=== PATIENT | male | born 1955 | race Caucasian/White ===

== ENCOUNTER → 2017-04-27 | Outpatient (CLI) | payer BC ==
[2017-04-27 09:28] LABS: HEMATOCRIT 45.9 % (42-52); MEAN CELL VOLUME 91.3 fL (80-100); MEAN CORPUSCULAR HEMOGLOBIN 31.6 pg (25-34); MEAN CORPUSCULAR HGB CONC 34.6 g/dl (32-36); MEAN PLATELET VOLUME 10.9 fL (7.4-10.4); PLATELET COUNT 199 K/uL (130-400); RED BLOOD COUNT 5.03 M/uL (4.7-6.1); WHITE BLOOD COUNT 6.96 K/uL (4.8-10.8)
[2017-04-27 09:42] LABS: ALT/SGPT 29 U/L (12-78); AST/SGOT 19 U/L (15-37); BLOOD UREA NITROGEN 14 mg/dl (7-18); BUN/CREATININE RATIO 13.7 (10-20); CALCIUM 8.7 mg/dl (8.5-10.1); CARBON DIOXIDE 29 mmol/L (21-32); CHLORIDE 105 mmol/L (98-107); CHOLESTEROL 167 mg/dl (0-200); GLUCOSE 100 mg/dl (70-99); POTASSIUM 4.5 mmol/L (3.5-5.1); SODIUM 139 mmol/L (136-145); TRIGLYCERIDES 80 mg/dl (0-150); VERY LOW DENSITY LIPOPROT CALC 16 mg/dl
[2017-04-27 09:46] LABS: CHOLESTEROL/HDL RATIO 3.6; HDL CHOLESTEROL 47 mg/dl; LDL CHOLESTEROL CALCULATED 104 mg/dl
== END | disposition home or self-care (01) ==
LOC: C.LAB1850 07:29
PROVIDERS: ATTEND Internal Medicine
DX: E55.9 Vitamin D deficiency, unspecified (principal); Z12.5 Encounter for screening for malignant neoplasm of prostate; Z13.220 Encounter for screening for lipoid disorders; M15.9 Polyosteoarthritis, unspecified; G44.89 Other headache syndrome

== ENCOUNTER → 2017-04-30 | Outpatient (CLI) | payer BC ==
--- NOTE | 2017-04-30 09:52 | DIAGNOSTIC IMAGING REPORT ---
RIGHT HIP UNILATERAL 2 VIEWS CLINICAL HISTORY: 61 years-old Male presenting with right hip pain. TECHNIQUE: Frontal and frog-leg lateral views of the right hip were obtained. COMPARISON: 12/21/2015. FINDINGS: Right hip joint congruent. No acute fracture. Degenerative changes noted with mild joint space loss and osteophytosis as well as subchondral sclerosis. This is not significantly changed from the prior exam. Surgical clips noted in the right hemipelvis. Regional soft tissues within normal limits. IMPRESSION: Degenerative changes of the right hip not significant changed from prior exam. No acute osseous injury. Electronically signed by: Manohar Carr M.D. 04/30/2017 9:51 AM Dictated Date/Time: 04/30/2017 9:48 AM
== END | disposition home or self-care (01) ==
LOC: C.RAD1850 09:39
PROVIDERS: ATTEND Internal Medicine
DX: M25.551 Pain in right hip (principal)

== ENCOUNTER → 2017-07-19 | Outpatient (CLI) | payer BC ==
--- NOTE | 2017-07-19 14:01 | DIAGNOSTIC IMAGING REPORT ---
R VENOUS DOPP LOWER EXT UNILAT CLINICAL HISTORY: R60.0 Edema of right lower [id number] pain. Edema. TECHNIQUE: Venous Doppler COMPARISON STUDY: None FINDINGS: Normal study. No evidence for deep venous thrombosis. Venous flow characteristics are unremarkable. IMPRESSION: Normal study The above report was generated using voice recognition software. It may contain grammatical, syntax or spelling errors. Electronically signed by: Izaiah Smith M.D. 07/19/2017 2:00 PM Dictated Date/Time: 07/19/2017 1:59 PM
--- NOTE | 2017-07-19 14:32 | DIAGNOSTIC IMAGING REPORT ---
R KNEE 3 VIEWS CLINICAL HISTORY: M25.569 Pain and swelling of [id number] pain. Edema. COMPARISON: None. DISCUSSION: Mild degenerative change all major joint compartments. Lateral bony exostosis of the medial femoral condyle. Nonacute process. No significant joint effusion. There is no evidence for soft tissue swelling. IMPRESSION: No acute process. Mild degenerative change. The above report was generated using voice recognition software. It may contain grammatical, syntax or spelling errors. Electronically signed by: Izaiah Smith M.D. 07/19/2017 2:30 PM Dictated Date/Time: 07/19/2017 2:30 PM
== END | disposition home or self-care (01) ==
LOC: C.ULTR 13:35
PROVIDERS: ATTEND Internal Medicine
DX: M25.569 Pain in unspecified knee (principal); R60.0 Localized edema

== ENCOUNTER 2022-03-07 05:11 | Observation (INO) ==
--- NOTE | 2022-02-06 15:58 | PAT Medication Instructions ---
Medication Instructions Date of Service February 06, 2022 Home Medications Medication Instructions Recorded nortriptyline 50 mg capsule 50 mg PO HS #90 cap 01/26/22 cholecalciferol (vitamin D3) 125 mcg (5,000 unit) tablet (Vitamin D3) 5,000 units PO QAM sildenafil 20 mg tablet 20 - 100 mg PO UD PRN lutein 25 mg-zeaxanthin 5 mg capsule 1 cap PO .Every other day famotidine 20 mg tablet 20 mg PO QAM PRN psyllium husk 0.4 gram capsule (Metamucil) 0.4 gm PO QAM triamcinolone acetonide 0.1 % topical cream 1 appln TOP DAILY PRN nortriptyline 50 mg capsule 50 mg PO HS alfuzosin 10 mg tablet,extended release 24 hr 10 mg PO HS meloxicam 15 mg tablet 15 mg PO QAM ASK your surgeon for instructions meloxicam 15 mg tablet 15 mg PO QAM ASK your prescriber and surgeon nortriptyline 50 mg capsule 50 mg PO HS STOP taking 2 weeks before surgery (or as soon as possible if surgery is within 2 weeks) lutein 25 mg-zeaxanthin 5 mg capsule 1 cap PO .Every other day STOP taking 24 hours before surgery triamcinolone acetonide 0.1 % topical cream 1 appln TOP DAILY PRN sildenafil (pulm.hypertension) 20 mg tablet 20 - 100 mg PO UD PRN DO NOT take the morning of surgery cholecalciferol (vitamin D3) 125 mcg (5,000 unit) tablet (Vitamin D3) 5,000 units PO QAM sildenafil 20 mg tablet 20 - 100 mg PO UD PRN psyllium husk 0.4 gram capsule (Metamucil) 0.4 gm PO QAM Take morning of surgery With a small sip of water, OTHERWISE NOTHING TO EAT OR DRINK AFTER MIDNIGHT: famotidine 20 mg tablet 20 mg PO QAM PRN (if needed) Take evening before surgery alfuzosin 10 mg tablet,extended release 24 hr 10 mg PO HS Other Notes If you have any questions please call us at [phone] or [phone] or [phone] or [phone]
--- NOTE | 2022-02-09 11:02 | Anesthesiology Consultation ---
Date of Service February 09, 2022 Assessment & Plan (1) Encounter for pre-operative examination: - Pt reports upcoming planned permanent crown placement and was advised he is to discuss with surgeon's office as depending on surgery/surgeon there may be needed interval from dental procedure to planned orthopedic surgery. He verbalized understanding and agreement, denied questions or concerns. - COVID screening: Per assessment on 02/09/2022: Travel screen negative, no known COVID-19 positive contacts or current COVID-19 related symptoms in past 2 weeks. Pt vaccinated. Surgeon arranging preop COVID testing, scheduled 03/03/2022. Awaiting results. Chart Review Chart Review: Acceptable Risk for Surgery and Patient seen in Pre Admission Testing Teaching & Discussion Pre-Anesthesia Teaching/Discussion Notes: Instructed NPO after midnight before surgery, except medications with 15 cc of water. Medication instructions provided according to the PAT guidelines. History Surgery Operation Date: 03/07/22 08:50 Proposed Procedures p Right Total Hip Arthroplasty - Estuardo Amado MD Height/Weight Height: 6 ft Weight: 89.3 kg Allergies Allergy/AdvReac Type Severity Reaction Status Date / Time SULFA Allergy Unknown Swelling Uncoded 02/06/22 12:40 of Lip/Tongue/Throat Medications Home Medications Medication Instructions Recorded Confirmed Last Taken cholecalciferol (vitamin D3) 125 5,000 units PO QAM 03/25/19 02/06/22 Unknown mcg (5,000 unit) tablet (Vitamin D3) sildenafil (pulm.hypertension) 20 20 - 100 mg PO UD PRN #30 tab 07/30/19 02/06/22 Unknown mg tablet lutein 25 mg-zeaxanthin 5 mg 1 cap PO .Every other day cap 08/04/19 02/06/22 Unknown capsule famotidine 20 mg tablet 20 mg PO QAM PRN tab 09/22/19 02/06/22 Unknown psyllium husk 0.4 gram capsule 0.4 gm PO QAM 12/26/19 02/06/22 Unknown (Metamucil) triamcinolone acetonide 0.1 % 1 appln TOP DAILY PRN 01/29/20 02/06/22 Unknown topical cream nortriptyline 50 mg capsule 50 mg PO HS #90 cap 01/26/22 02/06/22 Unknown alfuzosin 10 mg tablet,extended 10 mg PO HS 02/06/22 02/06/22 Unknown release 24 hr meloxicam 15 mg tablet 15 mg PO QAM 02/06/22 02/06/22 Unknown Past Medical History Medical History (Updated 02/09/22 @ 11:23 by Estela Morales PA-C) BPH (benign prostatic hyperplasia) Chronic mixed headache syndrome GERD (gastroesophageal reflux disease) controlled, stable per pt Osteoarthritis of knee Patient denies h/o stroke, seizures, heart attack, heart failure, DM, HTN, blood clots or blood transfusions. Exercise / Class Metabolic Activity II 4-5 Yardwork/Stairs/Walk up hill (denies CP or SOB with 1 FOS) Past Family History Family History Other Adopted Family history unknown Past Surgical History Surgical History S/P colonoscopy S/P nasal surgery Nasal fracture (50 years ago) S/P orchiectomy S/P right knee arthroscopy Past Anesthesia History No Hx of Anesthesia Complications and No Family Hx of Anesthesia Complications History of PONV No Hx of PONV and No Hx of Motion Sickness Social History Smoking Status: Former smoker Do You Dip or Chew Tobacco: No Smoking End Date: QUIT 40 YEARS AGO Hx Alcohol Use: Yes (2-3 beers daily ) Alcohol type: beer Hx Substance Use: No substance use type: does not use Review of Systems Snoring, denies witnessed apneas. Patient denies chest pain, shortness of breath, dyspnea on exertion, fever, chills, cough, wheezing, or palpitations. Physical Exam Vital Signs Vitals BP 135/78 P 84 TEMP 99.2 SP02 97% on RA RESP 17 Physical Full cervical extension range of motion without pain TMD 3.5 finger breaths Mallampati Score 2 Dentition: intact, permanent bridge left upper side, temporary crown left lower side; Lungs: normal respiratory effort. Clear throughout to auscultation, no adventitious breath sounds Cardiac: regular rate and rhythm, no murmurs noted Carotid arteries: negative bruit bilat Lab Results Anesthesia Preop Results Results Anesthesia Widget: WBC 4.57 K/uL (4.8-10.8) L 02/09/22 Hgb 15.5 g/dL (14.0-18.0) 02/09/22 Hct 46.2 % (42-52) 02/09/22 Plt 236 K/uL (130-400) 02/09/22 Na 139 mmol/L (136-145) 02/09/22 K 4.9 mmol/L (3.5-5.1) 02/09/22 Cl 105 mmol/L (98-107) 02/09/22 CO2 30 mmol/L (21-32) 02/09/22 BUN 19 mg/dl (6-23) 02/09/22 Creat 0.90 mg/dl (0.6-1.4) 02/09/22 Glucose Level 102 mg/dl (70-99(Fasting)) H 02/09/22 PT 10.4 Seconds (9.0-12.0) 02/09/22 PTT 27.1 Seconds (21.0-31.0) 02/09/22 INR 1.0 (0.9-1.1) 02/09/22 Blood Type O Negative 02/09/22 Antibody Screen NEGATIVE 02/09/22 Testing Electrocardiogram Date: 02/09/22 NSR, rate 80 bpm Chest X-Ray Date: 02/09/22 No lines and tubes are seen. The cardiomediastinal silhouette is normal. The lungs are clear. No evidence of pleural effusion or pneumothorax. IMPRESSION: No acute chest disease.
--- NOTE | 2022-03-04 14:34 | History and Physical Report ---
CHIEF COMPLAINT: Right hip and leg pain. HISTORY OF PRESENT ILLNESS: The patient is a 66-year-old gentleman who presents for treatment of his right hip and leg. He is a retired maintenance analyst who has had a several-year history of increas ing right hip pain and discomfort radiating down his leg. He has both hip and knee pain. Hip was a bit worse in the knee. He has been followed by Dr. De Leon over at [facility] and treated. Over time, his h ip and leg pain just gradually gotten worse. He has groin pain, thigh pain radiating down the medial side of his knee. He had several intra-articular injections by Dr. Taylor which gives him about a wee k or two of relief and that is it. He did have a bursal injection, which did not help at all. He wo uld like to have his hip fixed. Of note, the patient does have a history of right knee arthroscopy done by Dr. House 30 years ago. PAST MEDICAL HISTORY: 1. Low back pain/degenerative disk disease. 2. Benign prostatic hypertrophy. PAST SURGICAL HISTORY: Include: 1. Right knee arthroscopy done by Dr. House 30 years ago. 2. Testicular removal 30 years ago. ALLERGIES: SULFA. CURRENT MEDICATIONS: 1. Mobic. 2. Nortriptyline. 3. Prostate medicine. SOCIAL HISTORY: This is a 66-year-old gentleman. He is retired and . Two drinks per day. H e does not smoke. FAMILY HISTORY: Noncontributory. He is adopted. REVIEW OF SYSTEMS: Significant for BPH. Denies any chest pain or shortness of breath. No history o f DVT or PE. No known bleeding problems. He does have other musculoskeletal aches and pains. PHYSICAL EXAMINATION: GENERAL: Shows a pleasant, healthy appearing middle-aged male. HEENT: Benign. NECK: Supple. No lymphadenopathy. LUNGS: Clear to auscultation. HEART: Regular rate and rhythm. ABDOMEN: Soft, nontender, nondistended. EXTREMITIES: Grossly neurovascularly intact except as follows. Examination of the right hip and leg reveals the patient walks with a slightly antalgic gait. Leg le ngths clinically appear pretty equal. He has stiffness with hip motion and pain with attempted inter nal rotation. I can internally rotate to neutral. Negative straight leg raise. Examination of the right knee reveals slight varus alignment to his knee. Minimal knee effusion. Mi ld tenderness medially. Range of motion 0 to 125. X-RAYS: X-rays of the right hip show advanced right hip DJD. He has a septal disease with osteophyt es around the femoral head and acetabulum. He has still got some joint space superiorly, but fairly concentric central disease. It has progressed since his x-rays a year ago. X-rays of the right knee were also reviewed. It shows some mild medial joint space narrowing. ASSESSMENT: A 66-year-old gentleman with: 1. Advanced right hip degenerative disk disease. He has failed conservative treatment and would lik e to have his hip replaced. 2. Right knee degenerative joint disease with a history of knee arthroscopy in the past. I think th e majority of his pain at this point is coming from his hip. PLAN: We talked about treatment plans. He has exhausted all conservative care. He would like to pr oceed with right total hip replacement. The risks and benefits of this procedure were explained to t he patient include but not limited to DVT, PE, , infection, neurological injury, vascular injury , bleeding problem, pain, limited range of motion, stiffness, failure to relieve symptoms, incomplete relief of symptoms, etc. The patient understands and desires to proceed. Informed consent was obta ined. He is planning to stay in the hospital overnight and hopefully discharge on postoperative day 1 after rehabilitation/physical therapy does okay. He has a at home that can assist in his care. She is currently recovering from a compression fracture. Job ID: [id number]
[2022-03-07] MEDS ORDERED: ceFAZolin 2000MG 2,000 MG/15 ML SYR IV SCH (06:00)
[2022-03-07] MEDS ORDERED: LR 500ML BOLUS, THEN 15ML/HR IV SCH (06:00)
[2022-03-07] MEDS ORDERED: FAMOTIDINE 20 MG TAB PO SCH (06:00)
[2022-03-07] MEDS ORDERED: METOCLOPRAMIDE HCL 10 MG TABLET PO SCH (06:00)
[2022-03-07] MEDS ORDERED: TRANEXAMIC ACID 1,000 MG **IV Pre-op IV SCH (06:00)
[2022-03-07] MEDS ORDERED: Scopolamine 1 MG TDSY TD SCH (06:00)
[2022-03-07] MEDS ORDERED: ACETAMINOPHEN 500 MG TAB PO SCH (06:00)
[2022-03-07] MEDS ORDERED: LR 60ML/HR IV SCH (06:00)
[2022-03-07] MEDS ORDERED: BUPIVACAINE 0.5 % 5 MG/1 ML PF 10ML VIAL ONE (06:15)
[2022-03-07] MEDS ORDERED: MIDAZOLAM HCL 1 MG/ML 2ML VIAL ONE (06:19)
[2022-03-07] MEDS ORDERED: fentaNYL citrate 100 MCG/2 ML VIAL ONE (06:20)
[2022-03-07] MEDS ORDERED: BUPIVACAINE 0.5 % 5 MG/1 ML MPF 30ML VIAL ONE (06:34)
[2022-03-07] MEDS ORDERED: EPINEPHrine INJ 1 MG/ML AMP ONE (06:34)
--- NOTE | 2022-03-07 06:56 | History & Physical Bridge Note ---
Date of Service March 07, 2022 History & Physical Bridge Note I have examined the patient, reviewed the History & Physical and in the interval since the performance of the History & Physical I have noted the following changes of clinical significance: no changes noted
[2022-03-07] MEDS ORDERED: ONDANSETRON INJ 2 MG/ML 2 ML VIAL ONE (07:15)
[2022-03-07] MEDS ORDERED: PROPOFOL IV EMULSION 10 MG/ML 20 ML VIAL IV ONE (07:15)
[2022-03-07] MEDS ORDERED: PHENYLEPHRINE 100MCG/ML 5ML SYR ONE (07:35)
[2022-03-07] MEDS ORDERED: NALOXONE HCL 0.4 MG/1 ML VIAL/CARP IV PRN ×2 (07:51→10:18)
[2022-03-07] MEDS ORDERED: HYDROmorphone INJ 1 MG/ML SYRINGE IV PRN (07:51)
[2022-03-07] MEDS ORDERED: fentaNYL citrate 100 MCG/2 ML VIAL IV PRN (07:51)
[2022-03-07] MEDS ORDERED: ONDANSETRON INJ 2 MG/ML 2 ML VIAL IV PRN ×2 (07:51→10:18)
[2022-03-07] MEDS ORDERED: PROMETHAZINE HCL 12.5 MG in SODIUM CHLORIDE 0.9% 50 ML IV PRN (07:51)
[2022-03-07] MEDS ORDERED: ATROPINE SULFATE 0.1 MG/ML 10ML SYR IV PRN (07:51)
[2022-03-07] MEDS ORDERED: FLUMAZENIL 0.1 MG/1 ML 10 ML VIAL IV PRN (07:51)
[2022-03-07] MEDS ORDERED: ePHEDrine sulfate 50 MG/ML AMP IV PRN (07:51)
--- NOTE | 2022-03-07 08:38 | Operative Report ---
PG Post Operative Report Pre & Post Diagnosis Operation Date: 03/07/22 07:00 Pre-Op Diagnosis: Advanced Degenerative Joint Disease Right Hip Post-Op Diagnosis: Advanced Degenerative Joint Disease Right Hip I identified the patient and participated in the time-out.: Yes Procedure Operation Date: 03/07/22 07:00 Actual Procedures p Right Total Hip Arthroplasty--Uncemented(Right) - Estuardo Amado MD Surgeon Estuardo Amado MD Asbestos Worker Nirav Felix PA-C Estimated Blood Loss 200 Findings Consistent with Post-Op Diagnosis Operative findings were advanced right hip DJD. He had pretty extensive diffuse grade 4 [id number] disease with a central appearance to the acetabular wear with osteophytes particularly around the acetabulum circumferentially. Moderate-sized joint effusion. Fluids 1800 cc Specimens Right femoral head sent for pathology Drains None Anesthesia Type Spinal MAC Complications none Disposition Accompanied Patient To Recovery: Yes Indications Patient is 66-year-old gentleman is had a several year history of increasing right hip pain discomfort describes gotten worse over time. Is been through extensive conservative treatment which became less successful over time. He had several intra-articular injections which did help him temporarily but his symptoms recurred. Pain is become more disabling. He elected proceed with total hip arthroplasty. Description of Procedure Operative implants consisted of: 1. Biomet G7 size 58 mm acetabular shell. 2. 6.5 cancellous acetabular screws 1 of 35 mm length and 120 mm length. 3. [place] hole meter technician. 4. Highly cross-linked polyethylene liner with a 58 mm outer diam and 36 mm inner diameter. 5. DePuy Kar[place] size 12 KLA femoral stem. 6. +5/36 mm ceramic articular ball. The patient was taken the operating, identified, and placed on the operating table supine position. All contact areas were properly padded. IV antibiotics arrived by anesthesia team. A spinal anesthetic and been implemented in the holding area. Velazquez catheter was placed in sterile fashion. Patient then abelino elayne in the left lateral decubitus position. An axillary roll was placed. Stulberg hip positioner was used for positioning. The right hip and the leg were then prepped and draped in usual sterile fashion. A posterior lateral approach of the right hip was then performed through a curvilinear incision centered over the greater trochanter. Sharp dissection was carried through subcutaneous tissue down to the IT band gluteal fascia the IT band gluteal fascia was incised longitudinally in line with the skin incision. The underlying greater bursa was excised. The piriformis and external rotators were tagged and taken off the posterior aspect hip joint capsule. Great care was taken throughout the procedure protect the sciatic nerve at all times. Posterior capsulotomy was then performed leaving a large flap for later repair. Hip was internally rotated and dislocated. Femoral neck osteotomy cut was made with Final Cut 15 mm above the lesser trochanter. Femoral head was removed and sent for pathology. The femur was retracted anteriorly. Attention was then drawn to the acetabulum. The acetabular labrum was excised. It was primarily ossified. Pulmonary fat was excised. Sequential reaming the acetabular was then performed begin with a size 47 progressing up to 57. I reamed a little bit with a 58 reamer. A 58 mm Biomet G7 acetabular shell was then placed in about 40 degrees lateral opening and 20 degrees of anteversion. Was fixed with two 6.5 cancellous acetabular screws. Some anterior osteophytes were removed. Trial liner was placed. Attention drawn the femur. The proximal femur was entered with a cookie cutter followed by canal finder. I then broached beginning with size 8 and progressing up to a 12. Got excellent fit at 12. I could not quite get this the whole way to the calcar cut. We then trialed the hip and the +5 articular ball seem to recreate tension appropriately, leg lengths equal, and was fully stable in full extension and external rotation and flexion to 90 degrees internal rotation over [address] I like to place these implants. All trial implants were removed. An apex hole meter technician was placed. Highly cross-linked polyethylene liner was placed. A DePuy [place] Links[place] size 12 femoral stem was impacted in position. +5/36 mm ceramic articular ball was placed. Hip was located once again found to be stable. Attention drawn toward closing. The wounds irrigated scope soft pulsatile lavage solution. I did inject locally with 60 cc of half percent Marcaine with epinephrine. Posterior capsule and external rotators were then repaired through drill holes in the posterior trochanter with #2 Tycron suture. The IT band gluteal fascia then closed in 1 PDS suture running fashion for subcutaneous tissue then closed with 2 layers with a deep layer #1 Vicryl suture in the subcutaneous tissues with 2-0 Dexon suture in a buried interrupted fashion. Skin was closed skin bridgette. Leg was then cleaned and dried and a sterile dressing was Xeroform, 4 x 4's, ABD pad, foam tape was applied. Patient then transferred to the recovery room in stable condition. The patient tolerated the procedure well and there were no complications. Nirav Felix, my physician patient support assistant, was present for the entire procedure. His assistance was essential and required for appropriate patient positioning, prepping and draping, surgical exposure, performing the technical details of the operation, placement the implants, closure of the wound, and placement of the sterile bandage. I attest to the content of the Intraoperative Record and any orders documented therein. Any exceptions are noted below.
--- NOTE | 2022-03-07 09:10 | Anesthesiology Progress Note ---
Date of Service March 07, 2022 Anesthesia Post Procedure Vital Signs Vital Signs: Temp Pulse Resp BP Pulse Ox 03/07/22 09:05 36.4 C L 78 15 138/74 95 03/07/22 08:55 72 14 134/76 94 03/07/22 08:45 77 20 118/67 97 03/07/22 08:35 78 13 105/64 95 03/07/22 08:26 36.3 C L 79 18 108/66 98 03/07/22 05:44 36.8 C 86 20 163/94 H 97 Pain Intensity Right Hip: Pain Intensity: 4 Transfer of Care Handoff Completed per policy Notes Mental Status: alert / awake / arousable Patient Amnestic to Procedure: Yes Nausea / Vomiting: adequately controlled Pain: adequately controlled Airway Patency, RR, SpO2: stable & adequate BP & HR: stable & adequate Hydration State: stable & adequate Neuraxial Anesthesia: was administered and sensory block is resolving Anesthetic Complications: no major complications apparent
--- NOTE | 2022-03-07 09:12 | XRay Report ---
XR hip 1V RT w pelvis HISTORY: 66 years-old Male IN PACU - A/P PELVIS and LATERAL HIP right hip total joint arthroplasty COMPARISON: Hip radiographs 01/29/2020 TECHNIQUE: AP view of the pelvis with crosstable lateral view of the right hip FINDINGS: Moderate left hip osteoarthritis. Right hip total joint arthroplasty demonstrates satisfactory alignm ent. No acute fracture or unexpected opaque foreign body identified. Lateral skin bridgette are present along with expected postoperative soft tissue swelling with deep tissue air. Surgical clips are agai n noted projecting over the right hemipelvis. IMPRESSION: Right hip total joint arthroplasty with expected postoperative changes. ACT 112: Negative or not required by law. The above report was generated using voice recognition software. It may contain grammatical, syntax o r spelling errors. Electronically signed by: Zak Sheldon M.D. 03/07/2022 9:11 AM
[2022-03-07] MEDS ORDERED: MAGNESIUM HYDROXIDE SUSP 30 ML UDC PO PRN (10:18)
[2022-03-07] MEDS ORDERED: HYDROmorphone INJ 0.5 MG/0.5 ML SYR IV PRN (10:18)
[2022-03-07] MEDS ORDERED: ALUMINUM/MAGNESIUM SUSP 30 ML UDC PO PRN (10:18)
[2022-03-07] MEDS ORDERED: FAMOTIDINE 20 MG TAB PO PRN (10:18)
[2022-03-07] MEDS ORDERED: diphenhydrAMINE Capsule 25 MG CAP PO PRN (10:18)
[2022-03-07] MEDS ORDERED: TRIAMCINOLONE ACET 0.1% CR 15 GM TUBE TOP PRN (10:18)
[2022-03-07] MEDS ORDERED: METOCLOPRAMIDE HCL INJ 5 MG/ML 2 ML VIAL IV PRN (10:18)
[2022-03-07] MEDS ORDERED: bisacodyL 10 MG SUPP PR PRN (10:18)
[2022-03-07] MEDS: SODIUM CHLORIDE 0.9% 1000ML 1,000 ML IV SCH ×2 (11:33→21:49)
[2022-03-07] MEDS: KETOROLAC TROMETHAMINE 15 MG/ML VIAL IV SCH ×3 (11:35→23:16)
[2022-03-07] MEDS: DOCUSATE SODIUM 100 MG CAP PO SCH ×2 (11:35→20:15)
[2022-03-07] MEDS: ASPIRIN 81 MG ECTAB PO SCH ×2 (11:35→20:13)
[2022-03-07] MEDS: CHOLECALCIFEROL 5,000 UNITS 125 MCG TAB PO SCH (11:35)
[2022-03-07] MEDS: MULTIVITAMIN TAB PO SCH (11:35)
[2022-03-07] MEDS: DOCUSATE SODIUM/SENNA 50/8.6MG TAB PO SCH (11:36)
[2022-03-07] MEDS: TAMSULOSIN HCL 0.4 MG CAP PO SCH (11:36)
[2022-03-07] MEDS ORDERED: PNEUMOCOCCAL POLYSACCHARIDES 25 MCG/0.5 ML VIAL/SYR IM ONE (12:00)
[2022-03-07] MEDS: ACETAMINOPHEN 500 MG TAB PO SCH ×2 (13:33→21:49)
[2022-03-07] MEDS: ceFAZolin 2000MG 2,000 MG/15 ML SYR IV SCH ×2 (13:35→22:20)
[2022-03-07] MEDS ORDERED: TRANEXAMIC ACID / 0.7% NACL 1,000 MG/100 ML BAG IV SCH (14:30)
[2022-03-07] MEDS: Scopolamine CHECK PATCH PLACEMENT SCH ×2 (16:11→23:16)
[2022-03-07] MEDS: ALLERGY Noted to ORDERED Medication SCH ×3 (16:58→17:00)
[2022-03-07] MEDS: ASCORBIC ACID 500 MG TAB PO SCH (17:13)
[2022-03-07] MEDS: traMADol HCL 50 MG TABLET PO PRN (20:12)
[2022-03-07] MEDS ORDERED: ALFUZOSIN HCL 10 MG TAB PO SCH (21:00)
[2022-03-07] MEDS ORDERED: NORTRIPTYLINE HCL 25 MG CAP PO SCH (21:00)
[2022-03-07] MEDS ORDERED: SENNA 8.6 MG TAB PO SCH (21:00)
[2022-03-08] MEDS: KETOROLAC TROMETHAMINE 15 MG/ML VIAL IV SCH ×2 (05:51→11:51)
[2022-03-08] MEDS: ACETAMINOPHEN 500 MG TAB PO SCH (05:51)
[2022-03-08 06:33] LABS: Basophils # (auto) 0.01 K/uL (0-0.2); Basophils % (auto) 0.1 %; Eosinophils # (auto) 0.04 K/uL (0-0.5); Eosinophils % (auto) 0.5 %; Hemoglobin 13.6 g/dL (14.0-18.0); Immature Granulocytes # (auto) 0.01 K/uL (0.00-0.02); Immature Granulocytes % (auto) 0.1 %; Lymphocytes # (auto) 0.99 K/uL (1.2-3.4); Lymphocytes % (auto) 12.5 %; Mean Corpuscular Hemoglobin 32.8 pg (25-34); Mean Corpuscular Hgb Conc 36.8 g/dL (32-36); Mean Corpuscular Volume 89.2 fL (80-100); Mean Platelet Volume 10.7 fL (7.4-10.4); Monocytes % (auto) 11.4 %; Neutrophils # (auto) 5.96 K/uL (1.4-6.5); Neutrophils % (auto) 75.4 %; Platelet Count 191 K/uL (130-400); RDW Coefficient of Variation 12.3 % (11.5-14.5); RDW Standard Deviation 39.5 fL (36.4-46.3); Red Blood Count 4.15 M/uL (4.7-6.1); White Blood Count 7.91 K/uL (4.8-10.8)
[2022-03-08 06:52] LABS: BUN Creatinine Ratio 16.9 (10-20); Calcium 7.8 mg/dl (8.5-10.1); Creatinine Clr Calc Pharmacy 112.3 ml/min; Est GFR (African American) 113.3 ml/min; Est GFR (Non-African American) 97.8 ml/min; Potassium 3.8 mmol/L (3.5-5.1)
[2022-03-08] MEDS ORDERED: dexAMETHasone 10 MG in SYRINGE 0 ML IV SCH (08:00)
[2022-03-08] MEDS: traMADol HCL 50 MG TABLET PO PRN (08:48)
[2022-03-08] MEDS: ASCORBIC ACID 500 MG TAB PO SCH (08:49)
[2022-03-08] MEDS: CHOLECALCIFEROL 5,000 UNITS 125 MCG TAB PO SCH (08:50)
[2022-03-08] MEDS: ASPIRIN 81 MG ECTAB PO SCH (08:50)
[2022-03-08] MEDS: Scopolamine CHECK PATCH PLACEMENT SCH (08:50)
[2022-03-08] MEDS: TAMSULOSIN HCL 0.4 MG CAP PO SCH (08:51)
[2022-03-08] MEDS ORDERED: PSYLLIUM or GUAR GUM FIBER POWDER PACKET PO SCH (09:00)
[2022-03-08] MEDS: DOCUSATE SODIUM 100 MG CAP PO SCH (09:05)
[2022-03-08] MEDS: DOCUSATE SODIUM/SENNA 50/8.6MG TAB PO SCH (11:40)
[2022-03-08] MEDS: MULTIVITAMIN TAB PO SCH (11:44)
--- NOTE | 2022-03-08 13:54 | Progress Notes ---
DATE OF SERVICE: 03/08/2022 SUBJECTIVE: A 66-year-old gentleman, postoperative day 1 from right hip replacement. He is doing pr maddie well. Therapy went well. Denies any chest pain or shortness of breath. Not feeling dizzy or l ightheaded. He is hoping to go home. OBJECTIVE: VITAL SIGNS: Temperature 37.2. Vital signs are stable. PHYSICAL EXAMINATION: GENERAL: Shows a pleasant middle-aged male. He is sitting and lying in bed, looks pretty comfortabl e. EXTREMITIES: Examination of the right hip and leg reveals leg to be well aligned. Dressing is clean , dry and intact. Thigh is soft and supple. His hip is located. He is neurologically intact. LABORATORY DATA: Hemoglobin 13.6. Hematocrit 37.0. Electrolytes are stable. ASSESSMENT: A 66-year-old gentleman postoperative day 1 from right hip replacement, doing pretty wel l. His pain is controlled. Hip is located. He is neurologically intact. PLAN: 1. DVT prophylaxis includes thigh-high TEDs, SCDs, and aspirin twice a day. 2. PT, OT, weightbear as tolerated. Right total hip protocol. 3. Pain control, doing okay with current pain regimen. 4. Disposition: Plan is to discharge him to home today with home health. Job ID: [id number]
--- NOTE | 2022-03-12 06:55 | Discharge Summary ---
Date of Service March 12, 2022 Discharge Data Procedures Performed Operation Date: 03/07/22 07:00 Actual Procedures p Right Total Hip Arthroplasty--Uncemented(Right) - Estuardo Amado MD Hospital Course (1) S/P total right hip arthroplasty: This is a 66 year old patient admitted on 03/07/22 and underwent total hip arthroplasty. He tolerated the procedure well and there were no complications. Transferred to the PACU post op and later to the orthopedic floor for further care. He was given ancef for antibiotic prophylaxis. He was also given SHMUEL stockings, SCDs, and aspirin for DVT prophylaxis. Hemoglobin, hematocrit, and vital signs were monitored during his hospital stay and remained stable. Did not require any blood transfusions. There were no complications during his hospital stay. By post op day #1 the patient was tolerating a regular diet, pain was reasonably controlled with oral pain medicine, and he was participating in physical therapy. On post op day #1 the patient was discharged home and set up with home health care. He was given printed discharge instructions including prescriptions for extra strength tylenol, aspirin, toradol, zofran, tramadol, and flomax. Continue physical therapy, weight bearing as tolerated. Continue hip precautions. Continue SHMUEL stockings. Follow up approximately 2 weeks post op or sooner if there are problems or concerns. Coding Level of Care Code None Diagnoses S/P total right hip arthroplasty Z96.641
== END 2022-03-08 15:00 | disposition home health service (06) ==
LOC: PACUINP 05:11 → ASU 05:11 → 3N 10:58